=== PATIENT | male | born 1980 | race Two or more races ===

== ENCOUNTER 2016-06-03 21:03 | Emergency (ER) | payer SELFPAY ==
--- NOTE | 2016-06-03 21:46 | ED ---
Grzegorz Fitzgerald Erika, scribed for Jose Conley MD on 06/03/16 at 2121 . Substance Abuse/Use - HPI Summary HPI Summary: Patient is a 36-year-old male presenting to the ED as a 2208. 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 LEVEL 5 CAVEAT - INTOXICATED. - History Of Current Complaint Stated Complaint: 2208 Time Seen by Provider: 06/03/16 21:05 Hx Obtained From: EMS Hx From Patient Unobtainable Due To: Other - Intoxicated Ingestion History: Type/Name Of Drug - EtOH Severity Currently: Moderate Character: Stuporous - Allergies/Home Medications Allergies/Adverse Reactions: Allergies Allergy/AdvReac Type Severity Reaction Status Date / Time No Known Allergies Allergy Verified 07/11/14 20:22 PMH/Surg Hx/FS Hx/Imm Hx Psychiatric History: Reports: Hx Substance Abuse - EtOH abuse - Family History Known Family History: Positive: Unknown - Level 5 caveat - intoxicated - Social History Alcohol Use: Weekly Hx Substance Use: No Substance Use Type: Reports: None Hx Tobacco Use: Yes Smoking Status (MU): Heavy Every Day Tobacco Smoker Review of Systems - ROS Summary Review of Systems Summary: LEVEL 5 CAVEAT - INTOXICATED Neurological: Other - Intoxicated All Other Systems Reviewed And Are Negative: No Physical Exam Triage Information Reviewed: Yes Vital Signs On Initial Exam: Initial Vital Signs Temp 100.5 F 06/03/16 21:44 Pulse 94 06/03/16 21:44 Resp 21 06/03/16 21:44 BP 133/86 06/03/16 21:44 Pulse Ox 96 06/03/16 21:44 Vital Signs Reviewed: Yes Appearance: Positive: Well-Appearing, No Pain Distress Skin: Positive: Warm Head/Face: Positive: Normal Head/Face Inspection Eyes: Positive: JUICE ENT: Positive: Hearing grossly normal Neck: Positive: Supple Respiratory/Lung Sounds: Positive: Clear to Auscultation, Breath Sounds Present Cardiovascular: Positive: RRR Abdomen Description: Positive: Nontender, Soft Bowel Sounds: Positive: Present Musculoskeletal: Positive: Strength/ROM Intact Psychiatric: Positive: Affect/Mood Appropriate Diagnostics - Laboratory Result Diagrams: 06/03/16 21:45 06/03/16 21:45 Lab Statement: Any lab studies that have been ordered have been reviewed, and results considered in the medical decision making process. Course/Dx - Course Assessment/Plan: A 36 y/o M presents to the ED as a 2209. Serum alcohol is 459. Patient is observed in the ED. Patient will be discharged by the next physician once sober. - Diagnoses Provider Diagnoses: Alcohol intoxication Discharge - Discharge Plan Condition: Stable Disposition: HOME Patient Education Materials: Alcohol Intoxication (ED) Referrals: [facility] [Outside] The documentation as recorded by the Grzegorz beatty Erika accurately reflects the service I personally performed and the decisions made by , Jose Conley MD.
[2016-06-03 21:56] LABS: Hematocrit 41 % (42-52); Hemoglobin 13.8 g/dl (14.0-18.0); Mean Corpuscular HGB Conc 34 g/dl (31-36); Mean Corpuscular Hemoglobin 31 pg (27-31); Mean Corpuscular Volume 92 fL (80-94); Mean Platelet Volume 8 um3 (7.4-10.4); Red Blood Count 4.44 10^6/ul (4.0-5.4); Red Cell Distribution Width 15 % (10.5-15); White Blood Count 5.8 10^3/ul (3.5-10.8)
[2016-06-03 22:12] LABS: ALT 104 U/L (7-52); AST 113 U/L (13-39); Albumin 4.2 g/dL (3.2-5.2); Alkaline Phosphatase 53 U/L (34-104); Anion Gap 7 mmol/L (2-11); Blood Urea Nitrogen 6 mg/dL (6-24); CO2 Carbon Dioxide 25 mmol/L (22-32); Calcium 8.9 mg/dL (8.6-10.3); Chloride 106 mmol/L (101-111); EGFR African American 197.2 (>60); EGFR Non-African American 153.3 (>60); Globulin 2.8 g/dL (2-4); Glucose 101 mg/dL (70-100); Potassium 3.8 mmol/L (3.5-5.0); Sodium 138 mmol/L (133-145)
[2016-06-03 22:24] LABS: Acetaminophen < 15 mcg/mL; Salicylate < 2.50 mg/dL (<30)
[2016-06-03 22:27] LABS: Alcohol 459 mg/dL (<10)
[2016-06-03 22:34] LABS: TSH (Thyroid Stimulating Horm) 0.62 mcIU/mL (0.34-5.60)
[2016-06-04 07:48] VITALS: BP 127/69
== END 2016-06-04 07:45 | disposition home or self-care (01) ==
LOC: ED 21:03
DX: F10.129 Alcohol abuse with intoxication, unspecified (principal); Z72.0 Tobacco use; Y90.8 Blood alcohol level of 240 mg/100 ml or more
CPT/HCPCS: 36415; 80053; 80320; 80329; 84443; 85025; 99282; G0480

== ENCOUNTER 2017-08-18 18:58 | Emergency (ER) | payer SELFPAY ==
[2017-08-18] MEDS ORDERED: Haloperidol INJ IV/IM* 5 MG/ML AMP IM ONE (19:15)
[2017-08-18] MEDS ORDERED: Clotrimazole 1% CREAM* 30 GM TOPICAL ONE (19:15)
[2017-08-18] MEDS ORDERED: LORazepam INJ* 2 MG/ML 1 ML VIAL IM ONE (19:16)
--- NOTE | 2017-08-18 19:54 | RAD ---
INDICATION: Intoxicated. Fall. Intracranial injury. COMPARISON: CT brain October 12, 2011 TECHNIQUE: Noncontrast axial source images were acquired from the skull base to the vertex. FINDINGS: Ventricles/sulci: The ventricles and cisterns are normal in size and configuration for age. Brain parenchyma: There is no focal parenchymal finding, evidence of intracranial mass, or intracranial mass effect. Intracranial hemorrhage:None. Extra-axial spaces: There are no abnormal extra axial fluid collections or evidence of extra-axial mass. Calvarium: There is no calvarial fracture or other calvarial abnormality. Scalp: There is no evidence of scalp or extracalvarial soft tissue abnormality. Paranasal sinuses/mastoid: The paranasal sinuses and mastoid air cells are clear. Other: None. IMPRESSION: NEGATIVE EXAMINATION
--- NOTE | 2017-08-18 20:03 | RAD ---
INDICATION: . Fall. Injury. COMPARISON: CT cervical spine October 12, 2011 TECHNIQUE: Noncontrast axial source images was performed from the skull base to the thoracic inlet. Coronal and and sagittal reformatted images were generated. FINDINGS: Vertebrae: There is no fracture or acute focal bony lesion. Alignment: The craniocervical junction appears normal. The cervical vertebrae are normally aligned. Central Canal: There are arthritic changes resulting in canal and foraminal compromise. Uncinate process spurring is present C4-C6 and produces bilateral foraminal narrowing most significant lesion at C4-C5 on the right. There is also prominent anterior vertebral spurring at C5 and C6. There is posterior spondylitic ridge formation from C3 C4-C6 C7 between 2 mild decrease in AP diameter canal. MR imaging is a more sensitive method to evaluate the canal and foramina. Intervertebral disc spaces: The disc spaces are maintained. Brain: The visualized brain appears unremarkable. Soft tissues: The visualized soft tissue elements of the neck are unremarkable. The prevertebral soft tissues appear normal. The lung apices are clear. IMPRESSION: MULTILEVEL OSTEOARTHRITIC CHANGES. NO ACUTE FINDINGS.
[2017-08-19 03:50] VITALS: BP 0/0
--- NOTE | 2017-08-19 03:56 | ED ---
Anam Fitzgerald Stephanie, scribed for Gerard Hines MD on 08/18/17 at 1923 . Substance Abuse/Use - HPI Summary HPI Summary: The pt is a 37 y/o M BIB [facility] with c/o intoxication at 19:00. According to [employer], the police was called by a bystander who saw the pt unconscious in a parking lot. When the police arrived on scene the pt was stumbling intoxicated. He fell into a road sign and suffered a laceration to the head. ED physician was unable to engage the pt in a conversation due to intoxication and agitation. [employer] were unable to contact the family of the pt. He has apparent wounds in head from fall. At 19:12 the pt denies fighting someone. He denies physical pain. The pt states he works at [employer]. The pt states his L foot is in pain. HPI limited due to the pt being intoxicated. - History Of Current Complaint Stated Complaint: 2208 Time Seen by Provider: 08/18/17 19:14 [facility] From Patient Unobtainable Due To: Altered Mental Status - intoxication Onset/Duration of Drug/ETOH Abuse: Hours Ingestion History: Type/Name Of Drug - ETOH, Amount Ingested - Unknown Overdose Characteristics: Oral Severity Currently: Severe Aggravating Factor(s): Nothing Alleviating Factor(s): Nothing Associated Signs And Symptoms: Agitated - Allergies/Home Medications Allergies/Adverse Reactions: Allergies Allergy/AdvReac Type Severity Reaction Status Date / Time No Known Allergies Allergy Verified 08/18/17 19:14 PMH/Surg Hx/FS Hx/Imm Hx Sensory History: Denies: Hx Legally Blind EENT History: Denies: Hx Deafness Psychiatric History: Reports: Hx Substance Abuse - EtOH abuse - Surgical History Surgery Procedure, Year, and Place: Unable to obtain - Family History Known Family History: Positive: Unknown - Level 5 caveat - intoxicated - Social History Occupation: Employed Part-time Lives: With Family Alcohol Use: Weekly Hx Substance Use: No Substance Use Type: Reports: None Hx Tobacco Use: Yes Smoking Status (MU): Heavy Every Day Tobacco Smoker Review of Systems Negative: Fever Positive: Other - agitated All Other Systems Reviewed And Are Negative: Yes Physical Exam - Summary Physical Exam Summary: Appearance: Well-appearing, Well-nourished, lying in bed comfortably Skin: Warm, dry, no obvious rash, contusion on forehead R oriental orthodox area Eyes: sclera anicteric, no conjunctiva pallor ENT: mucous membranes moist, pharynx appears normal Neck: Supple, nontender Respiratory: Clear to auscultation, no signs of respiratory distress Cardiovascular: Normal S1, S2. No murmurs. Normal distal pulses in tibial and radial bilaterally. Abdomen: Soft, nontender, normal active bowel sounds present Musculoskeletal: Normal, Strength/ROM Intact Neurological: A&Ox3, awake and alert, can answer simple questions, intoxicated, slurred speech Psychiatric: affect is normal, does not appearing anxious or depressed Triage Information Reviewed: Yes Vital Signs On Initial Exam: Initial Vitals BP 162/104 08/18/17 19:08 Vital Signs Reviewed: Yes Diagnostics - Vital Signs Vital Signs Temp Pulse Resp BP Pulse Ox 08/19/17 00:00 99 97 08/18/17 23:38 87 89/51 94 08/18/17 23:19 88 94 08/18/17 23:09 87 86/49 95 08/18/17 23:05 89 91/48 95 08/18/17 23:03 87 96 08/18/17 22:00 98 95 08/18/17 21:22 96 93 08/18/17 19:20 16 08/18/17 19:10 37.6 C 116 20 162/104 95 08/18/17 19:08 162/104 - Laboratory Lab Statement: Any lab studies that have been ordered have been reviewed, and results considered in the medical decision making process. - CT Brain CT Interpretation: No Acute Changes CT Interpretation Completed By: Radiologist - NEGATIVE EXAM. ED physician has reviewed this report. Cervical Spine CT Interpretation: No Acute Changes CT Interpretation Completed By: Radiologist - MULTILEVEL OSTEOARTHRITIC CHANGES. NO ACUTE FINDINGS. ED physician has reviewed tis report. Re-Evaluation - Re-Evaluation First Eval Re-Evaluation Time: 20:45 Change: Improved - The pt is currently sleeping upon re-eval. Second Eval Re-Evaluation Time: 03:38 Change: Improved - The pt is awake and states he feels good and desires discharge. Course/Dx - Diagnoses Provider Diagnoses: Alcohol intoxication, Head injury due to trauma Discharge - Sign-Out/Discharge Documenting (check all that apply): Discharge/Admit/Transfer - Discharge Plan Condition: Improved Disposition: HOME Patient Education Materials: Abuse of Alcohol (ED) Referrals: No Primary Care Phys,NOPCP [Primary Care Provider] - The documentation as recorded by the Anam beatty Stephanie accurately reflects the service I personally performed and the decisions made by me, Gerard Hines MD.
== END 2017-08-19 03:40 | disposition home or self-care (01) ==
LOC: ED 18:58
DX: F10.129 Alcohol abuse with intoxication, unspecified (principal); S01.91XA Laceration without foreign body of unspecified part of head, initial encounter; W19.XXXA Unspecified fall, initial encounter; Y92.481 Parking lot as the place of occurrence of the external cause; F17.200 Nicotine dependence, unspecified, uncomplicated; M47.812 Spondylosis without myelopathy or radiculopathy, cervical region
CPT/HCPCS: 70450; 72125; 96372; 99284

== ENCOUNTER 2018-12-29 12:42 | Emergency (ER) | payer OTHER ==
[2018-12-29] MEDS ORDERED: Ibuprofen TAB* 600 MG PO ONE (15:07)
[2018-12-29 15:26] VITALS: BP 160/98
--- NOTE | 2018-12-30 05:36 | ED ---
Lower Extremity - HPI Summary HPI Summary: This patient is a 38-year-old male presenting to the ED with a fall 8 days ago. He states since the fall, he has been having ankle and knee pain with swelling. He is also endorsing abrasion to the medial ankle. He states he has not ambulated in the last 7 days until this morning. He states after ambulation he realized his ankle was still in pain so he decided to come to the ED. He has not used any [id number] medications for relief were elevated the extremity. He states he is here for note for work and to obtain a rx for ibuprofen. Denies pain currently to the knee. Denies numbness or tingling, color temperature changes. Patient denies any other symptoms. He does have ecchymosis around the eye, however he states he is unsure if he hit his head and denies any LOC. - History of Current Complaint Chief Complaint: EDExtremityLower Stated Complaint: FALL- KNEE PAIN PER PT Time Seen by Provider: 12/29/18 14:15 Hx Obtained From: Patient Mechanism Of Injury: Twisted Onset of Pain: Hours Onset/Duration: Hours Severity Initially: Moderate Severity Currently: Moderate Pain Intensity: 5 Pain Scale Used: 0-10 Numeric Timing: Constant Location: Is Discrete @ - right ankle Associated Signs And Symptoms: Positive: Negative. Negative: Swelling, Redness , Bruising Aggravating Factor(s): Standing, Ambulation Alleviating Factor(s): Rest Able to Bear Weight: No - Risk Factors Gout Risk Factors: Negative DVT Risk Factors: Negative Septic Arthritis Risk Factor: Negative - Allergies/Home Medications Allergies/Adverse Reactions: Allergies Allergy/AdvReac Type Severity Reaction Status Date / Time No Known Allergies Allergy Verified 08/18/17 19:14 PMH/Surg Hx/FS Hx/Imm Hx Previously Healthy: Yes Sensory History: Denies: Hx Legally Blind, Hx Deafness Opthamlomology History: Denies: Hx Legally Blind Psychiatric History: Reports: Hx Substance Abuse - EtOH abuse - Surgical History Surgery Procedure, Year, and Place: Unable to obtain - Immunization History Hx Pertussis Vaccination: No Immunizations Up to Date: Yes Infectious Disease History: No Infectious Disease History: Denies: Traveled Outside the [place] in Last 30 Days - Family History Known Family History: Positive: Unknown - Level 5 caveat - intoxicated - Social History Occupation: Employed Part-time Lives: With Family Alcohol Use: Weekly Hx Substance Use: No Substance Use Type: Reports: None Hx Tobacco Use: Yes Smoking Status (MU): Heavy Every Day Tobacco Smoker Review of Systems Negative: Fever, Chills, Fatigue, Skin Diaphoresis Negative: Epistaxis, Dental Pain Negative: Palpitations, Chest Pain Genitourinary: Negative Positive: no symptoms reported, see HPI Negative: Arthralgia, Myalgia Skin: Negative Neurological: Negative All Other Systems Reviewed And Are Negative: Yes Physical Exam Triage Information Reviewed: Yes Vital Signs On Initial Exam: Initial Vitals Temp Pulse Resp BP Pulse Ox 97.2 F 118 15 154/108 98 12/29/18 12:45 12/29/18 12:45 12/29/18 12:45 12/29/18 12:45 12/29/18 12:45 Vital Signs Reviewed: Yes Appearance: Positive: Well-Appearing, Well-Nourished Skin: Positive: Warm, Skin Color Reflects Adequate Perfusion Head/Face: Positive: Normal Head/Face Inspection Eyes: Positive: EOMI, JUICE, Conjunctiva Clear Neck: Positive: Supple, No Lymphadenopathy Respiratory/Lung Sounds: Positive: Clear to Auscultation, Breath Sounds Present Cardiovascular: Positive: RRR, Pulses are Symmetrical in both Upper and Lower Extremities Musculoskeletal: Positive: Pain @ - right ankle pain/abrasion Neurological: Positive: Sensory/Motor Intact, Alert, Oriented to Person Place, Time, Speech Normal Psychiatric: Positive: Affect/Mood Appropriate AVPU Assessment: Alert Diagnostics - Vital Signs Vital Signs Temp Pulse Resp BP Pulse Ox 12/29/18 15:25 98.3 F 92 16 160/98 97 12/29/18 12:45 97.2 F 118 15 154/108 98 - Laboratory Lab Statement: Any lab studies that have been ordered have been reviewed, and results considered in the medical decision making process. Lower Extremity Course/Dx - Course Course Of Treatment: On physical examination, patient is able to plantarflex and dorsiflex without discomfort. Abrasion to the medial ankle without abrasions otherwise. Some ecchymosis to the eye, but denies ALEMAN or LOC. States he wants ibuprofen and work note. He is given rx. Dx with ankle sprain. - Diagnoses Differential Diagnosis/HQI/PQRI: Positive: Sprain, Strain Provider Diagnoses: Ankle sprain Discharge ED - Sign-Out/Discharge Documenting (check all that apply): Patient Departure Patient Received Moderate/Deep Sedation with Procedure: No - Discharge Plan Condition: Stable Disposition: HOME Prescriptions: Bacitracin OINTMENT* 1 applic TOPICAL ONCE #1 tube Ibuprofen 600 mg PO TID PRN #30 tablet MDD 3 PRN Reason: Pain Patient Education Materials: Ankle Sprain (ED) Forms: *Work Release Referrals: No Primary Care Phys,NOPCP [Primary Care Provider] - Additional Instructions: Apply bacitracin ointment to the area once daily and cover with gauze - x 3 days Keep the gel splint applied as needed for comfort Ibuprofen 600mg three times daily as needed for pain - do not exceed 4 days - Billing Disposition and Condition Condition: STABLE Disposition: Home - Attestation Statements Provider Attestation: I was available for consult. This patient was seen by the TEREZA. The patient was not presented to, seen by, or examined by me. Jorgito White MD
== END 2018-12-29 15:25 | disposition home or self-care (01) ==
LOC: ED 12:42
DX: S93.401A Sprain of unspecified ligament of right ankle, initial encounter (principal); W19.XXXA Unspecified fall, initial encounter; Y92.9 Unspecified place or not applicable; F17.200 Nicotine dependence, unspecified, uncomplicated
CPT/HCPCS: 99282; A9270-GY